=== PATIENT | female | born 1980 | race Caucasian/White ===

== ENCOUNTER 2018-09-01 16:25 | Emergency (ER) | payer OTHER ==
[~2018-09-01] VITALS: Ht 157.5 cm; Wt 71.2 kg
[2018-09-01 16:35] VITALS: BP 117/77
[2018-09-01] MEDS ORDERED: KETOROLAC 60 MG/2 ML VIAL IM ONE (18:45)
[2018-09-01 20:30] VITALS: BP 109/69
== END 2018-09-01 20:50 | disposition home or self-care (01) ==
LOC: MED 16:25
DX: R07.0 Pain in throat (principal)
CPT/HCPCS: 96372; 99283; J1885